=== PATIENT | male | born 1945 | race Caucasian/White ===

== ENCOUNTER 2023-01-05 02:02 | Day surgery (SDC) | payer MEDICARE, SELFPAY ==
[2023-01-04 14:39] VITALS: BMI 27.6
--- NOTE | 2023-01-05 08:30 | ECG_ITS ---
Measurements Intervals [place] Rate: 60 P: 5 MT: 203 QRS: 19 QRSD: 105 T: 18 QT: 430 QTc: 432 Interpretive Statements SINUS RHYTHM INCOMPLETE RIGHT BUNDLE BRANCH BLOCK BORDERLINE ECG COMPARED TO ECG 01/05/2023 09:04:38 SINUS RHYTHM NOW PRESENT Electronically Signed On 01-05-2023 11:46:10 CDT by Johnnie Hardy D.O.
[2023-01-05 09:21] VITALS: BMI 28.8
[2023-01-05 09:24] VITALS: BP 125/83; PULSE 82; RESP 19; TEMP 36.8; O2SAT 95
[2023-01-05 09:26] LABS: Anion Gap 7 mmol/L (8-16); Blood Urea Nitrogen 22 mg/dL (9-20); Calcium 8.7 mg/dL (8.4-10.2); Carbon Dioxide 26 mmol/L (22-30); Chloride 107 mmol/L (98-107); Estimated CRCL calculation 42 ml/min; Estimated Glomerular Filt Rate 49; Glucose 100 mg/dL (65-110); Magnesium 2.1 mg/dL (1.6-2.3); Potassium 4.4 mmol/L (3.4-5.0); Sodium 140 mmol/L (137-145)
[2023-01-05 09:56] VITALS: BP 112/78; PULSE 86; RESP 19; O2SAT 99
[2023-01-05 10:00] VITALS: BP 121/71; PULSE 62; RESP 19; O2SAT 97
--- NOTE | 2023-01-05 10:04 | WPDMODSED ---
Moderate Sedation Note-Pt Data Patient Data Diagnosis: atrial fibrillation Present Complaint: atrial fibrillation Procedure to be performed/Plan: moderate sedation electrical cardioversion Allergies Allergy/AdvReac Type Severity Reaction Status Date / Time bacitracin Allergy Mild Rash Verified 01/05/23 09:18 gramicidin D Allergy Mild Rash Verified 01/05/23 09:18 neomycin Allergy Mild Rash Verified 01/05/23 09:18 polymyxin B Allergy Mild Rash Verified 01/05/23 09:18 Home Medications Medication Instructions Recorded Confirmed Type Adult One Daily Multivitamin 1 tablet PO DAILY 01/04/23 01/04/23 History acetaminophen 500 mg tablet 500 mg PO HS PRN Pain 01/04/23 01/04/23 History apixaban 5 mg tablet (Eliquis) 5 mg PO BID 01/04/23 01/04/23 History calcium carbonate-vitamin D3 600 1 cap PO DAILY 01/04/23 01/04/23 History mg-2.5 mcg (100 unit) capsule calcium phosphate 250 mg-vit D3 1 tablet PO DAILY 01/04/23 01/04/23 History 12.5 mcg (500 unit) chewable tablet cyanocobalamin (vitamin B-12) 5,000 mcg PO DAILY 01/04/23 01/04/23 History 5,000 mcg capsule docusate sodium 50 mg capsule 50 mg PO DAILY 01/04/23 01/04/23 History (Stool Softener) dronedarone 400 mg tablet (Multaq) 400 mg PO BID 01/04/23 01/04/23 History esomeprazole magnesium 20 mg 20 mg PO DAILY 01/04/23 01/04/23 History capsule,delayed release (Nexium) metoprolol tartrate 25 mg tablet 25 mg PO BID 01/04/23 01/05/23 History Current Medications: Active Medications Sodium Chloride (Normal Saline Iv) 1,000 mls @ 30 mls/hr IV CONT .Q24H MISAEL Sedation/Anesthesia: No previous sedation/anesthesia problems (including family history). [facility] Social History Social History Substance use: never Substance use type: does not use Living arrangements: alone Spiritual care concerns: No Mod Sed Physical Exam Physical Exam Pre Procedural Exam: Normal: Appearance, Eyes, Ears, Nose, Neck, Throat, Airway, Lungs, Heart Size, Heart Rate, Neuro Exam, Extremities and Skin and Variation: Heart Rhythm ( irregular irregular) Hours since solid foods: 12 Hours since liquid intake: 12 Mallampati Classification: class II Internal Medicine - PN: Obj Da Vital Signs Vital Signs: Vital Signs - 24 hr 01/05/23 09:24 01/05/23 09:56 01/05/23 10:00 Temperature 36.8 C Pulse Rate 82 86 62 Respiratory Rate 19 19 19 Blood Pressure 125/83 112/78 121/71 Pulse Oximetry 95 99 97 Oxygen Delivery Room Air Nasal Cannula Nasal Cannula Oxygen Flow Rate 3 3 Meds/Results Medications: Active Medications Generic Name Dose Route Start Last Admin Trade Name Freq PRN Reason Stop Dose Admin Sodium Chloride 1,000 mls @ 30 mls/hr 01/05/23 08:30 Normal Saline Iv IV CONT .Q24H MISAEL Labs 01/05/23 09:06 Labs: Laboratory Results - last 24 hr 01/05/23 09:06 Sodium 140 Potassium 4.4 Chloride 107 Carbon Dioxide 26 Anion Gap 7 L BUN 22 H Creatinine 1.40 H Estim Creat Clear Calc 42 Estimated GFR 49 L Glucose 100 Calcium 8.7 Magnesium 2.1 ASA Classification/Sedation ASA Classification/Sedation ASA Class: II Emergent: No Risks: Risks, benefits and alternatives explained and patient/family accepted plan for sedation. Patient re-evaluated immediately prior to sedation.
--- NOTE | 2023-01-05 10:06 | WPDCARDVER ---
Cardioversion Cardioversion Date of procedure: 01/05/23 Procedure: 1. Electrical cardioversion 2. Moderate sedation Pre-op diagnosis: atrial fibrillation Post-op diagnosis: Same Indications: atrial fibrillation Description of procedure: after discussing the risks, benefits alternatives of the procedure patient agreeable via verbal and written informed consent. Risks discussed included skin irritation or burn, stroke, adverse reaction anesthesia, shocking into more problematic heart rhythm. After establishing continuous phototypesetting equipment monitor, pulse oxygenation and serial blood pressure assessments and after time-out was taken, procedure was started Procedure start time 9:54 a.m. Procedure stop time 9:57 a.m. Complications: None Blood loss: None Medications provided were a total of 2 mg of Versed and 25 mcg of fentanyl Medications were administered patient was monitored by Roselia Mart RN Sedation: 2 mg Versed, 25 mcg fentanyl Findings: 1. Successful caodaism of sinus rhythm using 150 joules of biphasic synchronized energy 2. Moderate sedation Conclusion: 1. Successful caodaism of sinus rhythm from atrial fibrillation using 150 joules of biphasic synchronized energy 2. Moderate sedation
[2023-01-05 10:15] VITALS: BP 108/61; PULSE 66; RESP 20; O2SAT 95
[2023-01-05 10:30] VITALS: BP 112/74; PULSE 67; RESP 20; O2SAT 97
--- NOTE | 2023-01-05 10:30 | ECG_ITS ---
Measurements Intervals [place] Rate: 82 P: [place]: 0 QRS: 15 QRSD: 98 T: 27 QT: 385 QTc: 450 Interpretive Statements ATRIAL FIBRILLATION INCOMPLETE RIGHT BUNDLE BRANCH BLOCK ABNORMAL ECG NO PREVIOUS ECG AVAILABLE FOR COMPARISON Electronically Signed On 01-05-2023 9:36:43 CDT by Johnnie Hardy D.O.
[2023-01-05 10:45] VITALS: BP 108/81; PULSE 67; RESP 20; O2SAT 96
== END 2023-01-05 11:00 | disposition home or self-care (01) ==
PROVIDERS: PCP Internal Medicine; Visit Provider Internal Medicine Cardiovascular Disease
PROC: 5A2204Z Restoration of Cardiac Rhythm, Single (ICD-10-PCS; principal; 2023-01-05 10:00)
DX: I48.91 Unspecified atrial fibrillation (principal); I10 Essential (primary) hypertension
CPT/HCPCS: 36415; 80048; 83735; 92960; J2250; J3010; J7030

== ENCOUNTER 2024-07-24 01:33 | Day surgery (SDC) | payer MEDICARE, SELFPAY ==
[2024-07-23 10:23] VITALS: BMI 30.1
[2024-07-24] VITALS (8 sets, daily range): BP systolic 104–134; BP diastolic 65–100; PULSE 46–70; RESP 13–20; O2SAT 95–99
--- NOTE | 2024-07-24 08:30 | ECG_ITS ---
Test Date: 2024-07-24 08:49:36 Measurements Intervals [place] Rate: 72 P: 0 [place]: 0 QRS: 20 QRSD: 96 T: 29 QT: 426 QTc: 467 Interpretive Statements ATRIAL FIBRILLATION ABNORMAL ECG No previous ECG available for comparison Electronically Signed On 07-24-2024 10:59:53 DIRECTOR OF VOCATIONAL GUIDANCE by Car Barrera M.D.
[2024-07-24 09:20] LABS: Anion Gap 6 mmol/L (4-12); Blood Urea Nitrogen 27 mg/dL (9-20); Calcium 9.1 mg/dL (8.4-10.2); Carbon Dioxide 27 mmol/L (22-30); Chloride 109 mmol/L (98-107); Estimated CRCL calculation 42 ml/min; Estimated Glomerular Filt Rate 49; Glucose 101 mg/dL (65-110); Potassium 4.2 mmol/L (3.4-5.0); Sodium 142 mmol/L (137-145)
--- NOTE | 2024-07-24 10:00 | ECG_ITS ---
Test Date: 2024-07-24 10:16:28 Measurements Intervals [place] Rate: 47 P: -10 [place]: 194 QRS: 26 QRSD: 100 T: 22 QT: 512 QTc: 454 Interpretive Statements SINUS BRADYCARDIA PROLONGED QT INTERVAL ABNORMAL ECG Electronically Signed On 07-24-2024 11:01:53 RAISIN SEPARATOR OPERATOR by Car Barrera M.D.
--- NOTE | 2024-07-24 10:09 | WPDCARDVER ---
Cardioversion Cardioversion Date of procedure: 07/24/24 Procedure: Electrical cardioversion Pre-op diagnosis: Atrial fibrillation Post-op diagnosis: Same Indications: Atrial fibrillation Description of procedure: After discussing the risks, benefits alternatives stated patient agreeable via verbal and written informed consent. Risks discussed included shocking to improve more problematic heart rhythm, , skin irritation burning, stroke, adverse reaction to anesthesia. After establishing continuous surgical territory manager, pulse ox Daniel and serial blood pressure assessments, time-out was taken and procedure was initiated Procedure start time: 10:12 a.m. Procedure stop time 10:20 a.m. Complications: None Blood loss: None Sedation: Total 2 mg of Versed and 50 mcg of fentanyl were given. Medications were administered patient was monitored by Karina buckley RN Findings: Successful methodist of sinus rhythm/sinus bradycardia utilizing 150 joules of synchronized biphasic energy Conclusion: 1. Successful electrical cardioversion using 150 joules of biphasic synchronized energy to restore sinus rhythm/sinus bradycardia from atrial fibrillation 2. Moderate sedation Plan: Continue Eliquis without interruption. Will lower his sotalol dose and have a repeat EKG in 1 week
--- NOTE | 2024-07-24 10:10 | WPDMODSED ---
Moderate Sedation Note-Pt Data Patient Data Diagnosis: Atrial fibrillation Present Complaint: Atrial fibrillation Procedure to be performed/Plan: Electrical cardioversion moderate sedation Allergies Allergy/AdvReac Type Severity Reaction Status Date / Time bacitracin Allergy Mild Rash Verified 07/23/24 10:39 gramicidin D Allergy Mild Rash Verified 07/23/24 10:39 neomycin Allergy Mild Rash Verified 07/23/24 10:39 polymyxin B Allergy Mild Rash Verified 07/23/24 10:39 Home Medications Medication Instructions Recorded Confirmed Type Adult One Daily Multivitamin 1 tablet PO DAILY 01/04/23 07/23/24 History apixaban 5 mg tablet (Eliquis) 5 mg PO BID 01/04/23 07/24/24 History cyanocobalamin (vitamin B-12) 5,000 mcg PO DAILY 01/04/23 07/23/24 History 5,000 mcg capsule docusate sodium 50 mg capsule 50 mg PO DAILY 01/04/23 07/23/24 History (Stool Softener) esomeprazole magnesium 20 mg 20 mg PO DAILY 01/04/23 07/23/24 History capsule,delayed release (Nexium) epinephrine 0.3 mg/0.3 mL 0.6 ml IM PRN PRN Anaphylaxis 07/23/24 07/23/24 History injection, auto-injector sotalol 120 mg tablet 120 mg PO DAILY 07/23/24 07/24/24 History Sedation/Anesthesia: No previous sedation/anesthesia problems (including family history). [facility] Past Medical History Medical History (Updated 07/24/24 @ 10:10 by Car Barrera MD) Atrial fibrillation Social History Social History Smoking status: Never smoker Alcohol intake: never Substance use: never Substance use type: does not use Living arrangements: alone Spiritual care concerns: No Mod Sed Physical Exam Physical Exam Pre Procedural Exam: Normal: Appearance, Eyes, Ears, Nose, Neck, Throat, Airway, Lungs, Heart Size, Heart Rate, Neuro Exam, Extremities and Skin and Variation: Heart Rhythm (Irregular irregular) Hours since solid foods: 12 Hours since liquid intake: 12 Mallampati Classification: class II Internal Medicine - PN: Obj Da Vital Signs Vital Signs: Vital Signs - 24 hr 07/24/24 08:52 Pulse Rate 70 Respiratory Rate 13 Blood Pressure 128/85 Pulse Oximetry 97 Oxygen Delivery Room Air Labs 07/24/24 08:52 Labs: Laboratory Results - last 24 hr 07/24/24 08:52 Sodium 142 Potassium 4.2 Chloride 109 H Carbon Dioxide 27 Anion Gap 6 BUN 27 H Creatinine 1.40 H Estim Creat Clear Calc 42 Estimated GFR 49 L Glucose 101 Calcium 9.1 Magnesium 2.0 ASA Classification/Sedation ASA Classification/Sedation ASA Class: II Emergent: No Risks: Risks, benefits and alternatives explained and patient/family accepted plan for sedation. Patient re-evaluated immediately prior to sedation.
== END 2024-07-24 11:44 | disposition home or self-care (01) ==
PROVIDERS: PCP Internal Medicine; Visit Provider Internal Medicine Cardiovascular Disease
PROC: 5A2204Z Restoration of Cardiac Rhythm, Single (ICD-10-PCS; principal; 2024-07-24 10:00)
DX: I48.91 Unspecified atrial fibrillation (principal)
CPT/HCPCS: 36415; 80048; 83735; 92960; J2250; J3010; J7050